=== PATIENT | female | born 1950 | race Caucasian/White ===

== ENCOUNTER 2017-12-03 19:32 | Inpatient (IN) | payer OTHER ==
[~2017-12-03] VITALS: Ht 160 cm; Wt 90.3 kg
[2017-12-03 19:33] VITALS: Ht 160 cm; Wt 90.3 kg
[2017-12-03 22:57] LABS: BASOPHIL % 1.1 % (0-2); PLATELET COUNT 389 x10^3mcL (130-400)
[2017-12-03 23:01] LABS: RED CELL DISTRIBUTION WIDTH 16.1 % (11.5-14.5)
[2017-12-03 23:04] LABS: microscopic required? YES; urine erythrocyte 2+ (NEGATIVE)
[2017-12-03 23:20] LABS: CALCIUM 9.1 mg/dL (8.5-10.1); CARBON DIOXIDE 26.6 mmol/L (21-32); CHLORIDE SERUM 101 mmol/L (98-107); CREATININE SERUM 0.9 mg/dL (0.6-1.0); GFR1 > 60 mL/min; GLUCOSE SERUM 123 mg/dL (74-106); POTASSIUM SERUM 4.2 mmol/L (3.5-5.1); SODIUM SERUM 139 mmol/L (136-145)
[2017-12-03 23:22] LABS: ALBUMIN 3.5 g/dL (3.4-5.0); ALKALINE PHOSPHATASE 83 U/L (46-116); ALT/SGPT 17 U/L (14-59); AST/SGOT 14 U/L (15-37); BILIRUBIN TOTAL 0.37 mg/dL (0.20-1.00); CHOLESTEROL 200 mg/dL (<200); CHOLESTEROL/HDL RATIO 4.7; HDL CHOLESTEROL 43 mg/dL (40-60); LIPASE 118 IU/L (73-393); TOTAL PROTEIN, SERUM 7.5 g/dL (6.4-8.2); TRIGLYCERIDES 124 mg/dL (<150)
[2017-12-03 23:29] LABS: T3 TOTAL 0.93 ng/mL
[2017-12-04 00:04] LABS: FREE T4 0.82 ng/dL (0.76-1.46); FREE THYROXINE INDEX 1.9 ug/dL (1.4-4.5); T4(THYROXINE) 6.2 ug/dL (4.7-13.3)
[2017-12-04] MEDS ORDERED: METFORMIN HCL1000 MG PO (00:19)
[2017-12-04] MEDS ORDERED: NATURE'S BLEND F1 MG PO (00:20)
[2017-12-04] MEDS ORDERED: COLACE100 MG PO (00:20)
[2017-12-04] MEDS ORDERED: VITAMIN D32000 I2 PO (00:20)
[2017-12-04] MEDS ORDERED: PANTOPRAZOLE SO40 M1 PO (00:20)
[2017-12-04 02:18] VITALS: BP 120/62
[2017-12-04 05:35] VITALS: BP 99/53
[2017-12-04 05:37] VITALS: BP 118/61
[2017-12-04 09:08] VITALS: BP 142/70
[2017-12-04 17:15] VITALS: BP 115/70
[2017-12-04 20:56] VITALS: BP 96/56
[2017-12-05 02:00] VITALS: BP 150/72
[2017-12-05 06:14] VITALS: BP 116/59
[2017-12-05 10:31] VITALS: BP 116/64
[2017-12-05 18:11] VITALS: BP 131/68
[2017-12-05 22:29] VITALS: BP 134/66
[2017-12-06 05:23] VITALS: BP 120/62
[2017-12-06 06:43] LABS: PLATELET COUNT 336 x10^3mcL (130-400)
[2017-12-06 06:52] LABS: RED CELL DISTRIBUTION WIDTH 16.5 % (11.5-14.5)
[2017-12-06 07:54] LABS: BAND NEUTROPHIL 0 % (0-10); BASOPHIL 0 % (0-2); METAMYELOCTE 1 % (0-2); MONOCYTE 4 % (0-7); SEGMENTED NEUTROPHILS 66 % (37-75)
[2017-12-06 07:55] LABS: rbc morphology (normal/abnorm) ABNORMAL (NORMAL)
[2017-12-06 09:32] VITALS: BP 126/62
[2017-12-06 12:59] VITALS: BP 126/62
== END 2017-12-06 15:04 | disposition home or self-care (01) | DRG 392 ==
LOC: ED 19:32 → MU 12-04 00:09
PROVIDERS: Internal Medicine Gastroenterology; Specialist
DX: K57.92 Diverticulitis of intestine, part unspecified, without perforation or abscess without bleeding (principal); K27.9 Peptic ulcer, site unspecified, unspecified as acute or chronic, without hemorrhage or perforation; K59.00 Constipation, unspecified; E11.9 Type 2 diabetes mellitus without complications; E66.9 Obesity, unspecified; Z68.34 Body mass index [BMI] 34.0-34.9, adult
CPT/HCPCS: 82962; 83880; 84439; J1956; J2270; J2405; J2550; J3010; J3490; J7030; Q0092